=== PATIENT | male | born 1945 | race Caucasian/White ===

== ENCOUNTER 2021-12-16 08:49 | Emergency (ER) | payer OTHER ==
[2021-12-16 08:53] VITALS: BMI 22.6
[2021-12-16] MEDS ORDERED: BEBTELOVIMAB (EUA) 175 MG/2 ML VIAL IVPUSH ONE (09:02)
[2021-12-16 10:40] VITALS: BP 119/61; PULSE 79; TEMP 98.5
== END 2021-12-16 10:54 | disposition home or self-care (01) ==
LOC: JCOVINFU 08:49
DX: U07.1 COVID-19 (principal)
CPT/HCPCS: 99284-25; M0222; Q0222